=== PATIENT | male | born 1980 | race Caucasian/White ===

== ENCOUNTER 2020-08-23 14:22 | Emergency (ER) | payer OTHER ==
[~2020-08-23] VITALS: Ht 180.3 cm; Wt 88.5 kg
[2020-08-23] MEDS ORDERED: CEPHALEXIN500 MG PO (17:24)
[2020-08-23] MEDS ORDERED: HYDROCODON-ACE1 EAC7 PO (17:24)
[2020-08-23 19:35] VITALS: BP 108/72
== END 2020-08-23 19:36 | disposition home or self-care (01) ==
LOC: M.ERS 14:22
DX: S92.422A Displaced fracture of distal phalanx of left great toe, initial encounter for closed fracture (principal); S91.112A Laceration without foreign body of left great toe without damage to nail, initial encounter; W20.8XXA Other cause of strike by thrown, projected or falling object, initial encounter; Y93.89 Activity, other specified; Y92.89 Other specified places as the place of occurrence of the external cause; Y99.8 Other external cause status